=== PATIENT | female | born 1930 | race African-American/Black ===

== ENCOUNTER 2017-03-27 11:35 | Inpatient (IN) | payer MEDICARE, MEDICAID ==
[~2017-03-27] VITALS: Ht 162.6 cm; Wt 76.4 kg
[~2017-03-27 11:35] MED LIST: APIX2.5T PO; FURO-151 PO; HYDR-4134 PO; HYDR-523 PO; INSU100I19 SUBCUT; PROT40 PO; ZOLP5TAB8 PO
[2017-03-27 13:13] LABS: HEMATOCRIT. 29.3 % (36.0-48.0); HEMOGLOBIN. 9.5 g/dL (12.0-16.0); MEAN CORPUSCULAR HEMOGLOBIN 23.7 pg (28.0-32.0); MEAN CORPUSCULAR VOLUME 73.3 fL (81.0-99.0); MEAN PLATELET VOLUME 7.4 fl (7.4-10.4); PLATELET 295 x1000/uL (130-400); RED BLOOD CELL COUNT 3.99 mill/uL (4.2-5.4); RED CELL DISTRIBUTION WIDTH 21.9 % (11.6-14.6)
[2017-03-27 13:25] LABS: CARBON DIOXIDE 25 mEq/L (21-32); CHLORIDE 104 mEq/L (98-107)
[2017-03-27 13:34] LABS: PROTHROMBIN TIME > 100.0 sec
[2017-03-27 13:35] LABS: INR > 10.0
[2017-03-27 14:12] LABS: PLATELET ESTIMATE NORMAL
[2017-03-27 15:46] LABS: GLUCOSE URINE 1+ (NEGATIVE); KETONES URINE 2+ (NEGATIVE); LEUKOCYTE ESTERASE URINE 3+ (NEGATIVE); NITRITE URINE POSITIVE (NEGATIVE); OCCULT BLOOD URINE 3+ (NEGATIVE); PROTEIN URINE 4+ (NEGATIVE); SPECIFIC GRAVITY URINE 1.034 (1.005-1.030)
[2017-03-27 15:55] LABS: CLARITY URINE TURBID (CLEAR); COLOR URINE BLOODY (YELLOW)
[2017-03-27 17:41] VITALS: BP 161/79
[2017-03-27] MEDS ORDERED: IPRATROPIUM/ALBUTEROL 0.5-3(2.5)MG/3ML NEB INH PRN (17:45)
[2017-03-27] MEDS ORDERED: DIPHENHYDRAMINE 50MG/ML VIAL IV PRN (17:45)
[2017-03-27] MEDS ORDERED: GUAIFENESIN 200MG/10ML SUGAR FREE UDC PO PRN (17:45)
[2017-03-27] MEDS ORDERED: PHYTONADIONE 10MG/ML AMP SUBCUT NR (17:45)
[2017-03-27] MEDS ORDERED: DOCUSATE SODIUM 100MG CAPSULE PO PRN (17:45)
[2017-03-27] MEDS ORDERED: MAGNESIUM/ALUMINUM HYDROXIDE/SIMETHICONE 30ML UDC PO PRN (17:45)
[2017-03-27] MEDS ORDERED: ONDANSETRON HCL 4MG/2ML VIAL IV PRN (17:45)
[2017-03-27] MEDS ORDERED: LORAZEPAM 2MG/ML CPJ IV PRN (17:45)
[2017-03-27] MEDS ORDERED: NA PHOS,M-B/NA PHOS,DI-BA ENEMA 118ML PR PRN (17:45)
[2017-03-27 20:00] VITALS: BP_SYST 154; BP_SYST 194; BP_DIAS 77; BP_DIAS 91
[2017-03-27] MEDS ORDERED: ZOLPIDEM TARTRATE 5MG TABLET PO PRN (21:00)
[2017-03-27 22:00] VITALS: BP 184/77
[2017-03-27] MEDS ORDERED: DEXTROSE 50% WATER 50ML SYRINGE IV PRN (22:15)
[2017-03-27] MEDS: CEFTRIAXONE 1 G PREMIX 50 ML IV SCH (22:55)
[2017-03-27] MEDS: PANTOPRAZOLE SODIUM 40 MG/VIAL IV SCH (22:55)
[2017-03-27] MEDS: METOPROLOL TARTRATE 25MG TABLET PO SCH (22:56)
[2017-03-28] VITALS (31 sets, daily range): BP systolic 118–167; BP diastolic 53–85
[2017-03-28] MEDS: CLONIDINE 0.1MG TABLET PO PRN ×2 (00:26→17:01)
[2017-03-28 06:18] LABS: CHLORIDE 103 mEq/L (98-107)
[2017-03-28 06:32] LABS: HEMATOCRIT 24.7 % (36.0-48.0); HEMATOCRIT. 24.7 % (36.0-48.0); HEMOGLOBIN 8.1 g/dL (12.0-16.0); HEMOGLOBIN. 8.1 g/dL (12.0-16.0); MEAN CORPUSCULAR HEMOGLOBIN 24.1 pg (28.0-32.0); MEAN CORPUSCULAR VOLUME 73.3 fL (81.0-99.0); MEAN PLATELET VOLUME 7.9 fl (7.4-10.4); PLATELET 268 x1000/uL (130-400); RED BLOOD CELL COUNT 3.37 mill/uL (4.2-5.4)
[2017-03-28] MEDS: BLOOD SUGAR DIAGNOSTIC STRIP TEST SCH ×4 (06:32→21:00)
[2017-03-28] MEDS: INSULIN LISPRO 100 UNITS/ML SUBCUT SCH ×4 (06:34→21:00)
[2017-03-28 06:47] LABS: CARBON DIOXIDE 23 mEq/L (21-32)
[2017-03-28] MEDS: PANTOPRAZOLE SODIUM 40 MG/VIAL IV SCH ×2 (08:26→21:09)
[2017-03-28] MEDS: METOPROLOL TARTRATE 25MG TABLET PO SCH ×2 (08:26→21:12)
[2017-03-28 09:04] LABS: PLATELET ESTIMATE NORMAL
[2017-03-28 13:09] LABS: INR 1.3; PROTHROMBIN TIME 13.1 sec
[2017-03-28] MEDS ORDERED: LACTULOSE 20G/30ML UDC PO SCH (16:30)
[2017-03-28] MEDS: SENNOSIDES/DOCUSATE SOD 8.6/50MG TABLET PO SCH (16:54)
[2017-03-28] MEDS ORDERED: SORBITOL 70% SOLN 30ML PO SCH (21:00)
[2017-03-28] MEDS: CEFTRIAXONE 1 G PREMIX 50 ML IV SCH (21:13)
[2017-03-29] VITALS (14 sets, daily range): BP systolic 138–174; BP diastolic 54–84
[2017-03-29] MEDS: BLOOD SUGAR DIAGNOSTIC STRIP TEST SCH ×4 (06:50→21:27)
[2017-03-29] MEDS: INSULIN LISPRO 100 UNITS/ML SUBCUT SCH ×4 (06:56→21:00)
[2017-03-29] MEDS: METOPROLOL TARTRATE 25MG TABLET PO SCH ×2 (08:07→21:16)
[2017-03-29] MEDS: PANTOPRAZOLE SODIUM 40 MG/VIAL IV SCH ×2 (08:07→21:15)
[2017-03-29] MEDS: SENNOSIDES/DOCUSATE SOD 8.6/50MG TABLET PO SCH (08:08)
[2017-03-29 11:38] LABS: HEMATOCRIT. 26.8 % (36.0-48.0); HEMOGLOBIN. 8.8 g/dL (12.0-16.0); MEAN CORPUSCULAR HEMOGLOBIN 24.7 pg (28.0-32.0); MEAN CORPUSCULAR VOLUME 75.6 fL (81.0-99.0); MEAN PLATELET VOLUME 7.5 fl (7.4-10.4); PLATELET 253 x1000/uL (130-400); RED BLOOD CELL COUNT 3.55 mill/uL (4.2-5.4); RED CELL DISTRIBUTION WIDTH 22.4 % (11.6-14.6)
[2017-03-29 12:50] LABS: PLATELET ESTIMATE NORMAL
[2017-03-29] MEDS: CLONIDINE 0.1MG TABLET PO PRN (13:10)
[2017-03-29] MEDS: TRAMADOL 50MG TABLET PO PRN (13:10)
[2017-03-29 19:07] LABS: INR 1.1; PROTHROMBIN TIME 11.7 sec
[2017-03-29] MEDS ORDERED: POTASSIUM CHLORIDE 20MEQ/PACKET PO NR ×2 (19:30→21:00)
[2017-03-29] MEDS: CEFTRIAXONE 1 G PREMIX 50 ML IV SCH (21:45)
[2017-03-30] VITALS (13 sets, daily range): BP systolic 129–170; BP diastolic 54–86
[2017-03-30] MEDS: CLONIDINE 0.1MG TABLET PO PRN ×2 (00:06→13:29)
[2017-03-30] MEDS: BLOOD SUGAR DIAGNOSTIC STRIP TEST SCH ×4 (06:37→20:25)
[2017-03-30] MEDS: INSULIN LISPRO 100 UNITS/ML SUBCUT SCH ×4 (08:20→20:26)
[2017-03-30] MEDS: PANTOPRAZOLE SODIUM 40 MG/VIAL IV SCH ×2 (09:45→20:33)
[2017-03-30] MEDS: SENNOSIDES/DOCUSATE SOD 8.6/50MG TABLET PO SCH (09:45)
[2017-03-30] MEDS: METOPROLOL TARTRATE 25MG TABLET PO SCH ×2 (09:47→20:33)
[2017-03-30 12:00] LABS: HEMATOCRIT. 27.4 % (36.0-48.0); HEMOGLOBIN. 9.1 g/dL (12.0-16.0); MEAN CORPUSCULAR HEMOGLOBIN 25.3 pg (28.0-32.0); MEAN CORPUSCULAR VOLUME 75.5 fL (81.0-99.0); MEAN PLATELET VOLUME 7.4 fl (7.4-10.4); PLATELET 236 x1000/uL (130-400); RED BLOOD CELL COUNT 3.62 mill/uL (4.2-5.4); RED CELL DISTRIBUTION WIDTH 22.1 % (11.6-14.6)
[2017-03-30 12:22] LABS: T4 FREE 1.21 ng/dL (0.76-1.46)
[2017-03-30] MEDS: ACETAMINOPHEN 325MG TABLET PO PRN (13:20)
[2017-03-30] MEDS ORDERED: MAGNESIUM 2 G PREMIX 50 ML IV SCH (15:00)
[2017-03-30 15:04] LABS: PLATELET ESTIMATE NORMAL
[2017-03-30 17:35] LABS: CREATINE KINASE MB FRACTION 0.5 ng/mL (0.5-3.6); TROPONIN I 0.2 ng/mL (0.00-0.04)
[2017-03-30] MEDS: TRAMADOL 50MG TABLET PO PRN (20:21)
[2017-03-30] MEDS: CEFTRIAXONE 1 G PREMIX 50 ML IV SCH (21:53)
[2017-03-31 00:42] VITALS: BP 136/69
[2017-03-31] MEDS: TRAMADOL 50MG TABLET PO PRN (03:01)
[2017-03-31 03:32] LABS: CREATINE KINASE 26 IU/L (26-192); CREATINE KINASE MB FRACTION < 0.5 ng/mL (0.5-3.6); TROPONIN I 0.19 ng/mL (0.00-0.04)
[2017-03-31 04:02] VITALS: BP 163/69
[2017-03-31] MEDS: INSULIN LISPRO 100 UNITS/ML SUBCUT SCH ×4 (06:27→21:00)
[2017-03-31] MEDS: BLOOD SUGAR DIAGNOSTIC STRIP TEST SCH ×4 (06:27→21:44)
[2017-03-31 08:00] VITALS: BP 162/75
[2017-03-31] MEDS: PANTOPRAZOLE SODIUM 40 MG/VIAL IV SCH ×2 (08:46→22:00)
[2017-03-31] MEDS: METOPROLOL TARTRATE 25MG TABLET PO SCH ×2 (08:46→22:03)
[2017-03-31] MEDS: SENNOSIDES/DOCUSATE SOD 8.6/50MG TABLET PO SCH (08:50)
[2017-03-31 09:19] LABS: CREATINE KINASE 24 IU/L (26-192); CREATINE KINASE MB FRACTION < 0.5 ng/mL (0.5-3.6); TROPONIN I 0.19 ng/mL (0.00-0.04)
[2017-03-31 12:00] VITALS: BP 154/70
[2017-03-31 16:00] VITALS: BP 160/68
[2017-03-31 20:00] VITALS: BP 152/54
[2017-03-31] MEDS: CEFTRIAXONE 1 G PREMIX 50 ML IV SCH (22:22)
[2017-04-01] VITALS: BP 152/60
[2017-04-01 04:00] VITALS: BP 147/49
[2017-04-01] MEDS: BLOOD SUGAR DIAGNOSTIC STRIP TEST SCH ×4 (06:42→21:14)
[2017-04-01] MEDS: INSULIN LISPRO 100 UNITS/ML SUBCUT SCH ×4 (06:43→21:00)
[2017-04-01 08:30] VITALS: BP 155/72
[2017-04-01] MEDS: PANTOPRAZOLE SODIUM 40 MG/VIAL IV SCH ×2 (08:38→21:14)
[2017-04-01] MEDS: METOPROLOL TARTRATE 25MG TABLET PO SCH ×2 (08:38→21:14)
[2017-04-01] MEDS: SENNOSIDES/DOCUSATE SOD 8.6/50MG TABLET PO SCH (08:38)
[2017-04-01 12:00] VITALS: BP 138/67
[2017-04-01 16:00] VITALS: BP 157/70
[2017-04-01] MEDS: ACETAMINOPHEN 325MG TABLET PO PRN (17:17)
[2017-04-01 20:00] VITALS: BP 143/54
[2017-04-01] MEDS: CEFTRIAXONE 1 G PREMIX 50 ML IV SCH (21:14)
[2017-04-02] VITALS (8 sets, daily range): BP systolic 98–192; BP diastolic 45–92
[2017-04-02] MEDS: CLONIDINE 0.1MG TABLET PO PRN (00:23)
[2017-04-02] MEDS: INSULIN LISPRO 100 UNITS/ML SUBCUT SCH ×4 (06:57→21:00)
[2017-04-02] MEDS: BLOOD SUGAR DIAGNOSTIC STRIP TEST SCH ×4 (06:57→21:09)
[2017-04-02] MEDS ORDERED: HYDRALAZINE 20MG/ML VIAL IM NR (07:15)
[2017-04-02] MEDS: SENNOSIDES/DOCUSATE SOD 8.6/50MG TABLET PO SCH (09:00)
[2017-04-02] MEDS ORDERED: IOPAMIDOL 20 ML VIAL IT ONE (11:19)
[2017-04-02] MEDS ORDERED: IODIXANOL 320MG/ML 200ML BOTTLE ONE (11:34)
[2017-04-02] MEDS: METOPROLOL TARTRATE 25MG TABLET PO SCH ×2 (12:56→22:30)
[2017-04-02] MEDS: PANTOPRAZOLE SODIUM 40 MG/VIAL IV SCH ×2 (12:56→21:17)
[2017-04-02] MEDS: ACETAMINOPHEN 325MG TABLET PO PRN (17:29)
[2017-04-02] MEDS: CEFTRIAXONE 1 G PREMIX 50 ML IV SCH (22:30)
[2017-04-03] VITALS: BP 143/81
[2017-04-03] MEDS: ACETAMINOPHEN 325MG TABLET PO PRN (03:45)
[2017-04-03 04:00] VITALS: BP 158/49
[2017-04-03] MEDS: INSULIN LISPRO 100 UNITS/ML SUBCUT SCH ×3 (06:04→16:25)
[2017-04-03] MEDS: BLOOD SUGAR DIAGNOSTIC STRIP TEST SCH ×3 (06:04→16:25)
[2017-04-03 08:00] VITALS: BP 135/66
[2017-04-03] MEDS: SENNOSIDES/DOCUSATE SOD 8.6/50MG TABLET PO SCH (08:49)
[2017-04-03] MEDS: PANTOPRAZOLE SODIUM 40 MG/VIAL IV SCH (08:49)
[2017-04-03] MEDS: METOPROLOL TARTRATE 25MG TABLET PO SCH (08:49)
[2017-04-03 12:00] VITALS: BP 117/63
[2017-04-03 16:00] VITALS: BP_SYST 121; BP_SYST 158; BP_DIAS 85
[2017-04-03 17:24] VITALS: BP 158/65
== END 2017-04-03 20:43 | DRG 377 ==
LOC: ER 11:52 → 5WST 12:38 → EDBEDREQ 15:44 → ENRESERV 15:49 → 3WST 21:00 → 5WST 03-30 14:20
PROVIDERS: ADMIT Internal Medicine; ATTEND Internal Medicine
PROC: 30233L1 Transfusion of Nonautologous Fresh Plasma into Peripheral Vein, Percutaneous Approach (ICD-10-PCS; principal; 2017-03-28)
PROC: 30233N1 Transfusion of Nonautologous Red Blood Cells into Peripheral Vein, Percutaneous Approach (ICD-10-PCS; 2017-03-28)
PROC: 30233K1 Transfusion of Nonautologous Frozen Plasma into Peripheral Vein, Percutaneous Approach (ICD-10-PCS; 2017-03-28)
DX: K62.5 Hemorrhage of anus and rectum (principal); E43 Unspecified severe protein-calorie malnutrition; N17.0 Acute kidney failure with tubular necrosis; D62 Acute posthemorrhagic anemia; N39.0 Urinary tract infection, site not specified; I13.0 Hypertensive heart and chronic kidney disease with heart failure and stage 1 through stage 4 chronic kidney disease, or unspecified chronic kidney disease; I47.2 Ventricular tachycardia; I82.403 Acute embolism and thrombosis of unspecified deep veins of lower extremity, bilateral; N13.30 Unspecified hydronephrosis; K92.1 Melena; E11.22 Type 2 diabetes mellitus with diabetic chronic kidney disease; E83.52 Hypercalcemia; D50.9 Iron deficiency anemia, unspecified; G62.9 Polyneuropathy, unspecified; I25.10 Atherosclerotic heart disease of native coronary artery without angina pectoris; I48.0 Paroxysmal atrial fibrillation; I50.9 Heart failure, unspecified; K57.90 Diverticulosis of intestine, part unspecified, without perforation or abscess without bleeding; N18.9 Chronic kidney disease, unspecified; Z85.42 Personal history of malignant neoplasm of other parts of uterus; Z90.710 Acquired absence of both cervix and uterus; Z88.0 Allergy status to penicillin; Z79.899 Other long term (current) drug therapy
CPT/HCPCS: 36415; 71010; 74176; 80048; 80053; 80061; 81001; 82270; 82550; 82553; 82962; 83036; 83690; 83735; 83880; 84439; 84443; 84484; 85025; 85027; 85379; 85610; 86850; 86900; 86920; 86927; 87086; 93005; 93306; 97163; 97166; 97530; 99285; A6261; C9113; J0360; J0696; J1815; J2405; J3430; J3475; J7040; J7050; P9016; P9017; Q9966; Q9967; A4315

== ENCOUNTER 2017-05-05 13:56 | Inpatient (IN) | payer MEDICARE, MEDICAID ==
[~2017-05-05] VITALS: Ht 167.6 cm; Wt 67.4 kg
[2017-05-05] MEDS ORDERED: SODIUM CHLORIDE 0.9% 500 ML IV ONE (14:45)
[2017-05-05 15:27] LABS: HEMOGLOBIN. 7.7 g/dL (12.0-16.0); MEAN CORPUSCULAR HEMOGLOBIN 24.8 pg (28.0-32.0); MEAN CORPUSCULAR VOLUME 77.6 fL (81.0-99.0); MEAN PLATELET VOLUME 7.1 fl (7.4-10.4); PLATELET 359 x1000/uL (130-400); RED BLOOD CELL COUNT 3.09 mill/uL (4.2-5.4); RED CELL DISTRIBUTION WIDTH 20.6 % (11.6-14.6)
[2017-05-05 15:37] LABS: CARBON DIOXIDE 21 mEq/L (21-32); CHLORIDE 100 mEq/L (98-107)
[2017-05-05 15:40] LABS: TROPONIN I 0.14 ng/mL (0.00-0.04)
[2017-05-05] MEDS ORDERED: VANCOMYCIN 500 MG in DEXT 5% WATER 100 ML IV ONE (16:30)
[2017-05-05] MEDS ORDERED: CEFTRIAXONE 1 G PREMIX 50 ML IV ONE (16:30)
[2017-05-05 17:15] LABS: PROTHROMBIN TIME > 100.0 sec (9.4-11.6)
[2017-05-05 17:19] LABS: INR > 10.0
[2017-05-05 17:23] LABS: PLATELET ESTIMATE NORMAL
[2017-05-05] MEDS ORDERED: DEXTROSE 50% WATER 50ML SYRINGE IV PRN (23:15)
[2017-05-05 23:52] VITALS: BP 133/71
[2017-05-06 01:18] LABS: GLUCOSE URINE NEGATIVE (NEGATIVE); KETONES URINE NEGATIVE (NEGATIVE); LEUKOCYTE ESTERASE URINE 3+ (NEGATIVE); NITRITE URINE NEGATIVE (NEGATIVE); OCCULT BLOOD URINE 2+ (NEGATIVE); PH URINE 5.5 (4.5-8.0); PROTEIN URINE 3+ (NEGATIVE); SPECIFIC GRAVITY URINE 1.016 (1.005-1.030); UROBILINOGEN URINE 0.2 E.U./dL (0.2-1.0)
[2017-05-06 01:20] LABS: CLARITY URINE CLOUDY (CLEAR); COLOR URINE YELLOW (YELLOW)
[2017-05-06] MEDS ORDERED: CHOL500010 PO (02:36)
[2017-05-06] MEDS ORDERED: POLY17PO3 PO (02:36)
[2017-05-06] MEDS ORDERED: METO25TA6 PO (02:36)
[2017-05-06] MEDS ORDERED: FOLI-43 PO (02:36)
[2017-05-06] MEDS ORDERED: LEVO75TA7 PO (02:36)
[2017-05-06] MEDS ORDERED: FAMO-134 PO (02:36)
[2017-05-06] MEDS ORDERED: MULT-1146 PO (02:36)
[2017-05-06] MEDS ORDERED: DOCU-138 PO (02:36)
[2017-05-06] MEDS ORDERED: HYDR-4134 PO (02:36)
[2017-05-06 02:52] LABS: *AMPHETAMINES SCREEN URINE NEGATIVE (NEGATIVE); *BARBITURATES SCREEN URINE NEGATIVE (NEGATIVE); *BENZODIAZEPINES SCREEN URINE NEGATIVE (NEGATIVE); *COCAINE SCREEN URINE NEGATIVE (NEGATIVE); CANNABINOID URINE SCREEN NEGATIVE (NEGATIVE); METHADONE URINE SCREEN NEGATIVE (NEGATIVE); OPIATES URINE SCREEN NEGATIVE (NEGATIVE); PHENCYCLIDINE URINE SCREEN NEGATIVE (NEGATIVE)
[2017-05-06] MEDS ORDERED: VANCOMYCIN 500 MG PREMIX 100 ML IV SCH (03:00)
[2017-05-06 04:00] VITALS: BP 124/82
[2017-05-06 07:24] LABS: HEMATOCRIT. 23.2 % (36.0-48.0); HEMOGLOBIN. 7.5 g/dL (12.0-16.0); MEAN CORPUSCULAR HEMOGLOBIN 25.3 pg (28.0-32.0); MEAN CORPUSCULAR VOLUME 77.9 fL (81.0-99.0); MEAN PLATELET VOLUME 7.3 fl (7.4-10.4); PLATELET 333 x1000/uL (130-400); RED BLOOD CELL COUNT 2.98 mill/uL (4.2-5.4); RED CELL DISTRIBUTION WIDTH 20.1 % (11.6-14.6)
[2017-05-06] MEDS: INSULIN LISPRO (LOW DOSE) 100 UNITS/ML SUBCUT SCH ×4 (07:40→20:57)
[2017-05-06] MEDS: BLOOD SUGAR DIAGNOSTIC STRIP TEST SCH ×4 (07:47→20:52)
[2017-05-06 08:00] VITALS: BP 145/63
[2017-05-06] MEDS: CEFTRIAXONE 1 G PREMIX 50 ML IV SCH (09:30)
[2017-05-06 12:00] VITALS: BP 140/62
[2017-05-06 14:00] LABS: PLATELET ESTIMATE NORMAL
[2017-05-06 16:00] VITALS: BP_SYST 119; BP_SYST 137; BP_DIAS 49; BP_DIAS 59
[2017-05-06 20:00] VITALS: BP 138/62
[2017-05-06] MEDS ORDERED: VANCOMYCIN 750 MG PREMIX 150 ML IV SCH (21:00)
[2017-05-07] VITALS: BP 113/65
[2017-05-07 04:00] VITALS: BP 170/73
[2017-05-07] MEDS ORDERED: MORPHINE SULFATE 2 MG/ML CPJ (NOT FOR IM USE) IV PRN (06:45)
[2017-05-07] MEDS: BLOOD SUGAR DIAGNOSTIC STRIP TEST SCH ×4 (07:09→21:00)
[2017-05-07] MEDS: INSULIN LISPRO (LOW DOSE) 100 UNITS/ML SUBCUT SCH ×4 (07:09→21:00)
[2017-05-07 08:00] VITALS: BP 134/68
[2017-05-07] MEDS: AMLODIPINE 5MG TABLET PO SCH ×2 (08:28→21:29)
[2017-05-07] MEDS: CEFTRIAXONE 1 G PREMIX 50 ML IV SCH (08:28)
[2017-05-07 09:32] LABS: HEMATOCRIT. 22.1 % (36.0-48.0); HEMOGLOBIN. 7.1 g/dL (12.0-16.0); MEAN CORPUSCULAR HEMOGLOBIN 25.1 pg (28.0-32.0); MEAN CORPUSCULAR VOLUME 77.5 fL (81.0-99.0); MEAN PLATELET VOLUME 7.5 fl (7.4-10.4); PLATELET 318 x1000/uL (130-400); RED BLOOD CELL COUNT 2.84 mill/uL (4.2-5.4); RED CELL DISTRIBUTION WIDTH 20.4 % (11.6-14.6)
[2017-05-07] MEDS: SODIUM CHLORIDE 0.45% 1,000 ML IV SCH (11:10)
[2017-05-07 12:00] VITALS: BP_SYST 104; BP_SYST 162; BP_DIAS 52; BP_DIAS 74
[2017-05-07 14:28] LABS: PLATELET ESTIMATE NORMAL
[2017-05-07 16:00] VITALS: BP 163/69
[2017-05-07] MEDS ORDERED: VANCOMYCIN 1 G PREMIX 200 ML IV SCH (17:00)
[2017-05-07 20:00] VITALS: BP 153/67
[2017-05-08] VITALS: BP 136/57
[2017-05-08 04:00] VITALS: BP 167/71
[2017-05-08 06:29] LABS: HEMATOCRIT. 21.9 % (36.0-48.0); HEMOGLOBIN. 7.1 g/dL (12.0-16.0); MEAN CORPUSCULAR HEMOGLOBIN 25.3 pg (28.0-32.0); MEAN CORPUSCULAR VOLUME 78.2 fL (81.0-99.0); MEAN PLATELET VOLUME 7.3 fl (7.4-10.4); PLATELET 311 x1000/uL (130-400); RED CELL DISTRIBUTION WIDTH 20.3 % (11.6-14.6)
[2017-05-08] MEDS: BLOOD SUGAR DIAGNOSTIC STRIP TEST SCH ×4 (06:52→21:10)
[2017-05-08] MEDS: INSULIN LISPRO (LOW DOSE) 100 UNITS/ML SUBCUT SCH ×4 (06:52→21:00)
[2017-05-08 08:00] VITALS: BP 146/67
[2017-05-08] MEDS: AMLODIPINE 5MG TABLET PO SCH ×2 (08:43→21:08)
[2017-05-08] MEDS: CEFTRIAXONE 1 G PREMIX 50 ML IV SCH (08:43)
[2017-05-08 12:19] LABS: PLATELET ESTIMATE NORMAL
[2017-05-08 12:48] VITALS: BP 139/68
[2017-05-08] MEDS: SODIUM CHLORIDE 0.45% 1,000 ML IV SCH (14:04)
[2017-05-08 16:21] VITALS: BP 139/68
[2017-05-08 20:00] VITALS: BP 148/64
[2017-05-09] VITALS: BP 131/52
[2017-05-09 00:22] LABS: INR > 10.0; PROTHROMBIN TIME > 100.0 sec (9.4-11.6)
[2017-05-09] MEDS ORDERED: PHYTONADIONE 5MG TABLET PO NR (02:00)
[2017-05-09 04:00] VITALS: BP 145/65
[2017-05-09] MEDS: BLOOD SUGAR DIAGNOSTIC STRIP TEST SCH ×4 (07:10→21:54)
[2017-05-09] MEDS: INSULIN LISPRO (LOW DOSE) 100 UNITS/ML SUBCUT SCH ×4 (07:40→21:00)
[2017-05-09 08:00] VITALS: BP 148/64
[2017-05-09] MEDS: CEFTRIAXONE 1 G PREMIX 50 ML IV SCH (08:46)
[2017-05-09] MEDS: AMLODIPINE 5MG TABLET PO SCH ×2 (08:47→21:52)
[2017-05-09 12:00] VITALS: BP 145/75
[2017-05-09] MEDS: SODIUM CHLORIDE 0.45% 1,000 ML IV SCH (12:19)
[2017-05-09 14:47] LABS: PARTIAL THROMBOPLASTIN TIME 28.2 sec (23.4-31.0)
[2017-05-09 16:00] VITALS: BP 133/35
[2017-05-09 20:00] VITALS: BP 153/68
[2017-05-10] VITALS (11 sets, daily range): BP systolic 96–168; BP diastolic 50–69
[2017-05-10] MEDS: BLOOD SUGAR DIAGNOSTIC STRIP TEST SCH ×4 (06:19→21:41)
[2017-05-10] MEDS: INSULIN LISPRO (LOW DOSE) 100 UNITS/ML SUBCUT SCH ×4 (06:19→21:00)
[2017-05-10 08:30] LABS: PROTHROMBIN TIME > 100.0 sec (9.4-11.6)
[2017-05-10 08:34] LABS: INR > 10.0
[2017-05-10] MEDS: AMLODIPINE 5MG TABLET PO SCH ×2 (09:44→21:38)
[2017-05-10] MEDS: CEFTRIAXONE 1 G PREMIX 50 ML IV SCH (09:44)
[2017-05-10] MEDS: SODIUM CHLORIDE 0.45% 1,000 ML IV SCH (10:07)
[2017-05-10] MEDS: PHYTONADIONE 10MG/ML AMP SUBCUT SCH (11:19)
[2017-05-11] VITALS: BP 148/62
[2017-05-11 04:00] VITALS: BP 151/66
[2017-05-11] MEDS: BLOOD SUGAR DIAGNOSTIC STRIP TEST SCH ×4 (07:02→20:38)
[2017-05-11] MEDS: INSULIN LISPRO (LOW DOSE) 100 UNITS/ML SUBCUT SCH ×4 (07:02→20:37)
[2017-05-11 08:00] VITALS: BP 143/66
[2017-05-11] MEDS: CEFTRIAXONE 1 G PREMIX 50 ML IV SCH (09:15)
[2017-05-11] MEDS: PHYTONADIONE 10MG/ML AMP SUBCUT SCH (09:16)
[2017-05-11] MEDS: AMLODIPINE 5MG TABLET PO SCH ×2 (09:16→20:37)
[2017-05-11 12:00] VITALS: BP 131/62
[2017-05-11] MEDS: SODIUM CHLORIDE 0.45% 1,000 ML IV SCH (12:16)
[2017-05-11 16:23] VITALS: BP 145/60
[2017-05-11 20:09] VITALS: BP 142/62
[2017-05-12] VITALS (19 sets, daily range): BP systolic 110–146; BP diastolic 42–77
[2017-05-12 05:49] LABS: HEMATOCRIT. 21.8 % (36.0-48.0); MEAN CORPUSCULAR HEMOGLOBIN 25.4 pg (28.0-32.0); MEAN CORPUSCULAR VOLUME 78.7 fL (81.0-99.0); MEAN PLATELET VOLUME 7.5 fl (7.4-10.4); PLATELET 346 x1000/uL (130-400); RED BLOOD CELL COUNT 2.77 mill/uL (4.2-5.4); RED CELL DISTRIBUTION WIDTH 20.5 % (11.6-14.6)
[2017-05-12] MEDS: BLOOD SUGAR DIAGNOSTIC STRIP TEST SCH ×4 (07:10→21:23)
[2017-05-12] MEDS: INSULIN LISPRO (LOW DOSE) 100 UNITS/ML SUBCUT SCH ×4 (07:40→21:00)
[2017-05-12 07:50] LABS: PROTHROMBIN TIME > 100.0 sec (9.4-11.6)
[2017-05-12 07:51] LABS: INR > 10.0
[2017-05-12] MEDS: CEFTRIAXONE 1 G PREMIX 50 ML IV SCH (09:31)
[2017-05-12] MEDS: AMLODIPINE 5MG TABLET PO SCH ×2 (09:32→21:00)
[2017-05-12] MEDS: PHYTONADIONE 10MG/ML AMP SUBCUT SCH (09:32)
[2017-05-12] MEDS: SODIUM CHLORIDE 0.45% 1,000 ML IV SCH (12:05)
[2017-05-12] MEDS ORDERED: ACETAMINOPHEN 325MG TABLET PO PRN (12:15)
[2017-05-12 12:52] LABS: PLATELET ESTIMATE NORMAL
[2017-05-13 04:00] VITALS: BP 147/65
[2017-05-13] MEDS: BLOOD SUGAR DIAGNOSTIC STRIP TEST SCH ×2 (07:10→12:10)
[2017-05-13] MEDS: INSULIN LISPRO (LOW DOSE) 100 UNITS/ML SUBCUT SCH ×2 (07:40→12:40)
[2017-05-13 08:00] VITALS: BP 139/60
[2017-05-13] MEDS: AMLODIPINE 5MG TABLET PO SCH (08:47)
[2017-05-13 09:07] LABS: IMMUNOGLOBULIN A 893 mg/dL (64-422); IMMUNOGLOBULIN G 2092 mg/dL (700-1600); IMMUNOGLOBULIN M 62 mg/dL (26-217)
[2017-05-13 10:42] LABS: HEMATOCRIT. 27.8 % (36.0-48.0); MEAN CORPUSCULAR HEMOGLOBIN 25.7 pg (28.0-32.0); MEAN CORPUSCULAR VOLUME 78.4 fL (81.0-99.0); MEAN PLATELET VOLUME 6.8 fl (7.4-10.4); PLATELET 335 x1000/uL (130-400); RED BLOOD CELL COUNT 3.55 mill/uL (4.2-5.4)
[2017-05-13 11:25] LABS: HEMOGLOBIN. 9.1 g/dL (12.0-16.0)
[2017-05-13 12:00] VITALS: BP 128/62
[2017-05-13 12:18] VITALS: BP 139/60
[2017-05-13 16:15] LABS: PLATELET ESTIMATE NORMAL
== END 2017-05-13 14:25 | DRG 683 ==
LOC: ER 13:56 → 8WST 16:17 → EDBEDREQ 22:12 → ENRESERV 22:57
PROVIDERS: ADMIT Internal Medicine; ATTEND Internal Medicine
PROC: 30233L1 Transfusion of Nonautologous Fresh Plasma into Peripheral Vein, Percutaneous Approach (ICD-10-PCS; 2017-05-10)
PROC: 30233K1 Transfusion of Nonautologous Frozen Plasma into Peripheral Vein, Percutaneous Approach (ICD-10-PCS; 2017-05-10)
PROC: 30233N1 Transfusion of Nonautologous Red Blood Cells into Peripheral Vein, Percutaneous Approach (ICD-10-PCS; principal; 2017-05-12)
DX: N17.9 Acute kidney failure, unspecified (principal); N39.0 Urinary tract infection, site not specified; E46 Unspecified protein-calorie malnutrition; D68.9 Coagulation defect, unspecified; I50.9 Heart failure, unspecified; I13.0 Hypertensive heart and chronic kidney disease with heart failure and stage 1 through stage 4 chronic kidney disease, or unspecified chronic kidney disease; E11.22 Type 2 diabetes mellitus with diabetic chronic kidney disease; E44.1 Mild protein-calorie malnutrition; E87.1 Hypo-osmolality and hyponatremia; K92.2 Gastrointestinal hemorrhage, unspecified; E86.0 Dehydration; I25.10 Atherosclerotic heart disease of native coronary artery without angina pectoris; D50.9 Iron deficiency anemia, unspecified; E03.9 Hypothyroidism, unspecified; F03.90 Unspecified dementia, unspecified severity, without behavioral disturbance, psychotic disturbance, mood disturbance, and anxiety; K57.30 Diverticulosis of large intestine without perforation or abscess without bleeding; E11.9 Type 2 diabetes mellitus without complications; E56.1 Deficiency of vitamin K; B96.20 Unspecified Escherichia coli [E. coli] as the cause of diseases classified elsewhere; K74.60 Unspecified cirrhosis of liver; K80.20 Calculus of gallbladder without cholecystitis without obstruction; M47.9 Spondylosis, unspecified; R62.7 Adult failure to thrive; Z66 Do not resuscitate; Z85.43 Personal history of malignant neoplasm of ovary; Z86.711 Personal history of pulmonary embolism; Z86.718 Personal history of other venous thrombosis and embolism; Z87.440 Personal history of urinary (tract) infections; Z88.0 Allergy status to penicillin; Z90.710 Acquired absence of both cervix and uterus; Z85.42 Personal history of malignant neoplasm of other parts of uterus
CPT/HCPCS: 36415; 71010; 74176; 80048; 80053; 80305; 81001; 82784; 82962; 83036; 83880; 84484; 85025; 85384; 85610; 85611; 85651; 85730; 86334; 86850; 86900; 86920; 86927; 87040; 87077; 87086; 87186; 93005; 99285; J0696; J2270; J3370; J3430; J7040; J7050; J7060; P9016; P9017; A4315

== ENCOUNTER 2017-07-01 20:16 | Inpatient (IN) | payer MEDICARE, MEDICAID ==
[~2017-07-01] VITALS: Ht 170.2 cm; Wt 54.4 kg
[~2017-07-01 20:16] MED LIST changes: +CHOL500010 PO; +DOCU-138 PO; +FAMO-134 PO; +FOLI-43 PO; +LEVO75TA7 PO; +METO25TA6 PO; +MULT-1146 PO; +POLY17PO3 PO
[2017-07-01] MEDS ORDERED: KETOROLAC 30MG/ML VIAL IV STA (20:55)
[2017-07-01 21:33] LABS: HEMATOCRIT. 21.1 % (36.0-48.0); MEAN CORPUSCULAR HEMOGLOBIN 28.5 pg (28.0-32.0); MEAN CORPUSCULAR VOLUME 89.3 fL (81.0-99.0); MEAN PLATELET VOLUME 7.4 fl (7.4-10.4); PLATELET 473 x1000/uL (130-400); RED BLOOD CELL COUNT 2.36 mill/uL (4.2-5.4); RED CELL DISTRIBUTION WIDTH 21.3 % (11.6-14.6)
[2017-07-01 21:38] LABS: HEMOGLOBIN. 6.7 g/dL (12.0-16.0)
[2017-07-01 21:40] LABS: D-DIMER 2.03 mg/L FEU (<0.50); INR 1.3; PARTIAL THROMBOPLASTIN TIME 36.7 sec (23.4-31.0); PROTHROMBIN TIME 13.4 sec (9.4-11.6)
[2017-07-01 21:41] LABS: CARBON DIOXIDE 17 mEq/L (21-32); CHLORIDE 108 mEq/L (98-107)
[2017-07-01 21:47] LABS: TROPONIN I 0.08 ng/mL (0.00-0.04)
[2017-07-01 22:00] LABS: PLATELET ESTIMATE INCREASED
[2017-07-01] MEDS ORDERED: SODIUM CHLORIDE 0.9% 1,000 ML IV ONE (22:45)
[2017-07-01] MEDS ORDERED: LEVOFLOXACIN 500MG PREMIX 100 ML IV ONE (23:00)
[2017-07-02 01:09] LABS: CLARITY URINE CLEAR (CLEAR); COLOR URINE YELLOW (YELLOW); GLUCOSE URINE NEGATIVE (NEGATIVE); KETONES URINE NEGATIVE (NEGATIVE); LEUKOCYTE ESTERASE URINE 2+ (NEGATIVE); NITRITE URINE NEGATIVE (NEGATIVE); OCCULT BLOOD URINE TRACE (NEGATIVE); PROTEIN URINE 1+ (NEGATIVE); SPECIFIC GRAVITY URINE 1.018 (1.005-1.030); UROBILINOGEN URINE 0.2 E.U./dL (0.2-1.0)
[2017-07-02] MEDS ORDERED: ONDANSETRON HCL 4MG/2ML VIAL IV PRN (04:45)
[2017-07-02 05:15] VITALS: BP 142/64
[2017-07-02] MEDS ORDERED: ZOLPIDEM TARTRATE 5MG TABLET GT PRN (06:00)
[2017-07-02] MEDS ORDERED: SODIUM CHLORIDE 0.45% 1,000 ML IV SCH (06:00)
[2017-07-02 08:00] VITALS: BP 114/57
[2017-07-02 08:32] LABS: HEMATOCRIT. 24.1 % (36.0-48.0); HEMOGLOBIN. 7.9 g/dL (12.0-16.0); MEAN CORPUSCULAR HEMOGLOBIN 28.1 pg (28.0-32.0); MEAN PLATELET VOLUME 7.6 fl (7.4-10.4); PLATELET 408 x1000/uL (130-400); RED BLOOD CELL COUNT 2.81 mill/uL (4.2-5.4); RED CELL DISTRIBUTION WIDTH 17.9 % (11.6-14.6)
[2017-07-02] MEDS: MULTIVITAMINS,THER W-MINERALS TABLET GT SCH (09:27)
[2017-07-02] MEDS: PANTOPRAZOLE SODIUM 40 MG/VIAL IV SCH (09:27)
[2017-07-02] MEDS: METOPROLOL TARTRATE 25MG TABLET GT SCH ×2 (09:28→22:06)
[2017-07-02] MEDS: LEVOTHYROXINE SODIUM 75MCG TABLET GT SCH (09:28)
[2017-07-02] MEDS: HYDRALAZINE HCL 25MG TABLET GT SCH ×3 (09:28→23:51)
[2017-07-02] MEDS: FAMOTIDINE 20MG TABLET GT SCH (09:28)
[2017-07-02] MEDS: FOLIC ACID 1MG TABLET GT SCH (09:28)
[2017-07-02 11:34] LABS: PLATELET ESTIMATE NORMAL
[2017-07-02 12:00] VITALS: BP 117/42
[2017-07-02] MEDS: SODIUM CHLORIDE 0.45% 1,000 ML IV SCH (12:41)
[2017-07-02 16:00] VITALS: BP 118/52
[2017-07-02 20:00] VITALS: BP 117/53
[2017-07-03] VITALS: BP 122/57
[2017-07-03] MEDS: SODIUM CHLORIDE 0.45% 1,000 ML IV SCH ×2 (03:10→21:55)
[2017-07-03 04:00] VITALS: BP 130/67
[2017-07-03] MEDS: LEVOTHYROXINE SODIUM 75MCG TABLET GT SCH (07:08)
[2017-07-03] MEDS: HYDRALAZINE HCL 25MG TABLET GT SCH ×3 (07:08→21:54)
[2017-07-03 08:00] VITALS: BP 119/58
[2017-07-03] MEDS: MULTIVITAMINS,THER W-MINERALS TABLET GT SCH (09:20)
[2017-07-03] MEDS: PANTOPRAZOLE SODIUM 40 MG/VIAL IV SCH (09:21)
[2017-07-03] MEDS: FOLIC ACID 1MG TABLET GT SCH (09:21)
[2017-07-03] MEDS: METOPROLOL TARTRATE 25MG TABLET GT SCH ×2 (09:21→21:54)
[2017-07-03] MEDS: HYDROCODONE/ACETAMINOPHEN 10/325MG TABLET GT PRN ×2 (09:21→16:27)
[2017-07-03] MEDS: FAMOTIDINE 20MG TABLET GT SCH (09:21)
[2017-07-03 12:00] VITALS: BP 101/42
[2017-07-03] MEDS: LEVOFLOXACIN 250MG PREMIX 50 ML IV SCH (14:54)
[2017-07-03 16:00] VITALS: BP 110/45
[2017-07-03] MEDS ORDERED: DEXTROSE 50% WATER 50ML SYRINGE IV PRN (19:15)
[2017-07-03 20:00] VITALS: BP 104/36
[2017-07-03] MEDS: INSULIN LISPRO 100 UNITS/ML SUBCUT SCH (21:00)
[2017-07-03] MEDS: BLOOD SUGAR DIAGNOSTIC STRIP TEST SCH (21:46)
[2017-07-04] VITALS: BP 108/49
[2017-07-04 04:00] VITALS: BP 111/49
[2017-07-04] MEDS: HYDRALAZINE HCL 25MG TABLET GT SCH ×3 (06:00→21:38)
[2017-07-04] MEDS: BLOOD SUGAR DIAGNOSTIC STRIP TEST SCH ×4 (06:15→20:57)
[2017-07-04] MEDS: INSULIN LISPRO 100 UNITS/ML SUBCUT SCH ×4 (06:20→20:57)
[2017-07-04] MEDS: LEVOTHYROXINE SODIUM 75MCG TABLET GT SCH (06:27)
[2017-07-04 08:00] VITALS: BP 110/48
[2017-07-04 08:03] LABS: HEMATOCRIT. 26.6 % (36.0-48.0); HEMOGLOBIN. 8.7 g/dL (12.0-16.0); MEAN CORPUSCULAR HEMOGLOBIN 28.6 pg (28.0-32.0); MEAN CORPUSCULAR VOLUME 87.2 fL (81.0-99.0); PLATELET 256 x1000/uL (130-400); RED BLOOD CELL COUNT 3.05 mill/uL (4.2-5.4); RED CELL DISTRIBUTION WIDTH 20.7 % (11.6-14.6)
[2017-07-04] MEDS: MULTIVITAMINS,THER W-MINERALS TABLET GT SCH (08:23)
[2017-07-04] MEDS: PANTOPRAZOLE SODIUM 40 MG/VIAL IV SCH (08:23)
[2017-07-04] MEDS: FOLIC ACID 1MG TABLET GT SCH (08:23)
[2017-07-04] MEDS: METOPROLOL TARTRATE 25MG TABLET GT SCH ×2 (08:23→21:00)
[2017-07-04 08:35] LABS: CARBON DIOXIDE 17 mEq/L (21-32); CHLORIDE 109 mEq/L (98-107); PHOSPHORUS 4.8 mg/dL (2.5-4.9)
[2017-07-04 12:00] VITALS: BP 110/48
[2017-07-04] MEDS: LEVOFLOXACIN 250MG PREMIX 50 ML IV SCH (14:08)
[2017-07-04 16:00] VITALS: BP 99/39
[2017-07-04 17:25] LABS: PHOSPHORUS 4.3 mg/dL (2.5-4.9)
[2017-07-04] MEDS: CITRIC ACID/SODIUM CITRATE SOLN 15ML UDC PO SCH (17:32)
[2017-07-04] MEDS: SODIUM CHLORIDE 0.45% 1,000 ML IV SCH (17:33)
[2017-07-04] MEDS ORDERED: ACETAMINOPHEN 650MG/20.3ML UDC GT PRN (18:45)
[2017-07-04 20:00] VITALS: BP 90/39
[2017-07-04 22:36] LABS: PLATELET ESTIMATE NORMAL
[2017-07-05] VITALS: BP 95/46
[2017-07-05 04:00] VITALS: BP 80/33
[2017-07-05] MEDS: HYDRALAZINE HCL 25MG TABLET GT SCH ×2 (06:00→14:00)
[2017-07-05] MEDS: BLOOD SUGAR DIAGNOSTIC STRIP TEST SCH ×3 (06:15→17:31)
[2017-07-05] MEDS: INSULIN LISPRO 100 UNITS/ML SUBCUT SCH ×3 (06:15→17:36)
[2017-07-05 06:47] LABS: HEMATOCRIT. 21.6 % (36.0-48.0); MEAN CORPUSCULAR HEMOGLOBIN 27.6 pg (28.0-32.0); MEAN CORPUSCULAR VOLUME 88.1 fL (81.0-99.0); MEAN PLATELET VOLUME 8.5 fl (7.4-10.4); PLATELET 145 x1000/uL (130-400); RED BLOOD CELL COUNT 2.45 mill/uL (4.2-5.4); RED CELL DISTRIBUTION WIDTH 20.7 % (11.6-14.6)
[2017-07-05 07:00] LABS: HEMOGLOBIN. 6.8 g/dL (12.0-16.0)
[2017-07-05 07:36] LABS: CARBON DIOXIDE 15 mEq/L (21-32); CHLORIDE 110 mEq/L (98-107)
[2017-07-05 08:00] VITALS: BP 101/47
[2017-07-05] MEDS: METOPROLOL TARTRATE 25MG TABLET GT SCH (09:00)
[2017-07-05] MEDS: MULTIVITAMINS,THER W-MINERALS TABLET GT SCH (09:32)
[2017-07-05] MEDS: PANTOPRAZOLE SODIUM 40 MG/VIAL IV SCH (09:32)
[2017-07-05] MEDS: LEVOTHYROXINE SODIUM 75MCG TABLET GT SCH (09:32)
[2017-07-05] MEDS: FOLIC ACID 1MG TABLET GT SCH (09:32)
[2017-07-05] MEDS: CITRIC ACID/SODIUM CITRATE SOLN 15ML UDC PO SCH ×2 (09:32→17:35)
[2017-07-05 09:54] LABS: PLATELET ESTIMATE NORMAL
[2017-07-05] MEDS ORDERED: LEVOFLOXACIN 250MG TABLET GT SCH (11:00)
[2017-07-05 12:00] VITALS: BP 92/40
[2017-07-05 16:00] VITALS: BP 93/46
[2017-07-05] MEDS ORDERED: SULFAMETHOXAZOLE/TRIMETHOPRIM 800/160MG TABLET PO SCH (16:00)
[2017-07-05] MEDS ORDERED: CEFAZOLIN 1000MG PREMIX 50 ML IV SCH (17:00)
== END 2017-07-05 19:00 | disposition expired | DRG 871 ==
LOC: ER 20:49 → 6EST 23:20 → ENRESERV 07-02 03:18
PROVIDERS: ADMIT Internal Medicine; ATTEND Internal Medicine
PROC: 30233N1 Transfusion of Nonautologous Red Blood Cells into Peripheral Vein, Percutaneous Approach (ICD-10-PCS; principal; 2017-07-02)
DX: A41.9 Sepsis, unspecified organism (principal); E43 Unspecified severe protein-calorie malnutrition; N17.9 Acute kidney failure, unspecified; E87.2 Acidosis; E11.22 Type 2 diabetes mellitus with diabetic chronic kidney disease; K92.2 Gastrointestinal hemorrhage, unspecified; E86.0 Dehydration; N13.30 Unspecified hydronephrosis; I46.9 Cardiac arrest, cause unspecified; N13.9 Obstructive and reflux uropathy, unspecified; D64.9 Anemia, unspecified; N18.9 Chronic kidney disease, unspecified; I12.9 Hypertensive chronic kidney disease with stage 1 through stage 4 chronic kidney disease, or unspecified chronic kidney disease; I25.10 Atherosclerotic heart disease of native coronary artery without angina pectoris; Z66 Do not resuscitate; Z74.01 Bed confinement status; Z85.42 Personal history of malignant neoplasm of other parts of uterus; Z86.718 Personal history of other venous thrombosis and embolism; Z87.440 Personal history of urinary (tract) infections; Z90.710 Acquired absence of both cervix and uterus; Z79.01 Long term (current) use of anticoagulants; Z79.4 Long term (current) use of insulin; Z79.899 Other long term (current) drug therapy; Z88.0 Allergy status to penicillin; Z51.5 Encounter for palliative care
CPT/HCPCS: 36415; 51702; 71010; 74176; 80048; 80053; 81001; 82565; 82962; 83605; 83690; 83880; 84100; 84484; 85025; 85379; 85610; 85730; 86850; 86900; 86920; 87040; 87077; 87086; 87106; 87186; 93005; 93970; 96365; 96375; 99291; C9113; J0690; J1885; J1956; J7030; J7050; P9021; A4315